=== PATIENT | male | born 1975 | race African-American/Black ===

== ENCOUNTER → 2017-08-29 | Outpatient (CLI) | payer OTHER ==
[~2017-08-29] MED LIST: CLTP PO; LISI-788 PO; MULT-506 PO; OMEG10007 PO
--- NOTE | 2017-08-31 07:34 | Sleep Study ---
Sleep Study Report Date of Service: 08/29/2017 Sleep Study Report CLINICAL DATA: The patient is a 42-year-old male with a BMI of 27.53, referred by Dianna Samano PA-C for evaluation of sleep apnea. The patient has snoring and disturbed nocturnal sleep. There is a family history of obstructive sleep apnea. His [place] score is 7. On the evening of 08/29/2017, a home sleep apnea test was performed using a [employer] type 3 monitor. RECORDING RESULTS: Total recording time was 9.9 hours. Patient estimated sleep time was 6.5 hours. RESPIRATORY DATA: No significant sleep apnea was documented. The ROSARIO was 1.7 events per hour. There was 1 obstructive apnea and 10 hypopneas. The longest respiratory event was 30 seconds. OXIMETRY DATA: The mean saturation for the night was 94 percent. The minimum saturation was 88 percent. The estimated sleep time below 89 percent was 0 minutes. HEART RATE DATA: The cardiac rates 58-81 beats per minute. SNORING DATA: Snoring was present throughout the test. IMPRESSIONS: 1. NO EVIDENCE OF OBSTRUCTIVE SLEEP APNEA. Copies To 1: Gume Dickerson M.D.; Lloyd Schneider DO; Dianna Samano PA-C
== END | disposition home or self-care (01) ==
LOC: C.NEUR 08:23
PROVIDERS: ATTEND Physician Assistant
DX: G47.00 Insomnia, unspecified (principal); R53.83 Other fatigue; R51 Headache; R06.83 Snoring

== ENCOUNTER → 2017-11-10 | Outpatient (CLI) | payer OTHER ==
--- NOTE | 2017-11-10 14:41 | DIAGNOSTIC IMAGING REPORT ---
R EXTREMITY NONVASCULAR LIMITED CLINICAL HISTORY: RT SIDED INNER THIGH PAIN,SWELLING,R/O ABSCESS TECHNIQUE: Ultrasound COMPARISON STUDY: None FINDINGS: Soft tissue thickening at the point of clinical tenderness/nodularity. This surrounds a small fluid pocket measuring 1 cm x 5 mm. IMPRESSION: 1. Small fluid pocket measuring 1 cm x 0.5 cm. 2. This is surrounded by soft tissue thickening/fibrous tissue The above report was generated using voice recognition software. It may contain grammatical, syntax or spelling errors. Electronically signed by: John Zambrano M.D. 11/10/2017 2:39 PM Dictated Date/Time: 11/10/2017 2:36 PM
== END | disposition home or self-care (01) ==
LOC: C.ULTR 14:06
PROVIDERS: ATTEND Nurse Practitioner Family
DX: R22.9 Localized swelling, mass and lump, unspecified (principal)

== ENCOUNTER 2017-11-28 16:55 | Emergency (ER) | payer OTHER ==
[~2017-11-28] VITALS: Ht 182.9 cm; Wt 91.7 kg
[2017-11-28 16:59] VITALS: TEMP 36.7; Ht 182.9 cm; Wt 91.7 kg
[2017-11-28] MEDS ORDERED: ONDANSETRON INJ 2 MG/ML 2 ML VIAL IV STA (17:31)
[2017-11-28] MEDS ORDERED: SODIUM CHLORIDE 0.9% 1000ML 1,000 ML IV STA (17:31)
[2017-11-28 18:00] LABS: BASO % 0.6 %; BASO ABS # 0.04 K/uL (0-0.2); EOS % 0.9 %; EOS ABS # 0.06 K/uL (0-0.5); HEMATOCRIT 41.1 % (42-52); HEMOGLOBIN 15.4 g/dL (14.0-18.0); IG# 0.01 K/uL (0.00-0.02); LYMPH % 23.8 %; LYMPH ABS # 1.54 K/uL (1.2-3.4); MEAN CELL VOLUME 79.5 fL (80-100); MEAN CORPUSCULAR HEMOGLOBIN 29.8 pg (25-34); MEAN CORPUSCULAR HGB CONC 37.5 g/dl (32-36); MEAN PLATELET VOLUME 9.2 fL (7.4-10.4); MONO % 10.6 %; MONO ABS # 0.69 K/uL (0.11-0.59); NEUT % 63.9 %; NEUT ABS # 4.14 K/uL (1.4-6.5); PLATELET COUNT 180 K/uL (130-400); RED CELL DISTRIBUTION WIDTH SD 34.9 fL (36.4-46.3); WHITE BLOOD COUNT 6.48 K/uL (4.8-10.8)
[2017-11-28] MEDS ORDERED: CALC-354 PO (18:03)
[2017-11-28 18:24] LABS: ALBUMIN 3.7 gm/dl (3.4-5.0); CALCIUM 8.8 mg/dl (8.5-10.1); CREATININE 0.94 mg/dl (0.60-1.40); POTASSIUM 3.3 mmol/L (3.5-5.1)
[2017-11-28 18:27] LABS: TOTAL PROTEIN 7.8 gm/dl (6.4-8.2)
--- NOTE | 2017-11-28 18:35 | DIAGNOSTIC IMAGING REPORT ---
ABD/PELVIS NO IV OR ORAL CONT CLINICAL HISTORY: 42 years-old Male presenting with LLQ pain, vomiting and diarrhea, dehydration. TECHNIQUE: Multidetector CT of the abdomen and pelvis was performed without the use of intravenous contrast. IV contrast: None. A dose lowering technique was used consistent with the principles of ALARA (as low as reasonably achievable). COMPARISON: None. CT DOSE (mGy.cm): The estimated cumulative dose is 461.86 mGy.cm. 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 Lung bases: Lungs and pleural spaces clear. Normal heart size. No pericardial or pleural effusion. Liver: Normal morphology. Density consistent with hepatic steatosis. Subcentimeter hypodensity at the hepatic dome likely indicates hepatic cyst or hamartoma though indeterminate. Biliary: No gross biliary ductal dilatation allowing for noncontrast technique. Normal gallbladder. Pancreas: Normal noncontrast appearance. Spleen: Normal noncontrast appearance. Adrenal glands: Normal noncontrast appearance. Kidneys and ureters: Normal noncontrast appearance. No nephrolithiasis. No hydronephrosis. Normal ureters. Bladder: Circumferential bladder wall thickening. Pelvic organs: Mild prostatic enlargement likely secondary to benign prostatic hyperplasia. Bowel: Scattered hyperdensities throughout the bowel, likely medication menstruation. The appendix is normal. No bowel obstruction. No gross evidence of wall thickening or pericolonic or perienteric inflammatory change. Peritoneal cavity: No free fluid or intraperitoneal gas. Lymph nodes: No gross lymphadenopathy allowing for noncontrast technique. Vasculature: Normal noncontrast appearance. Abdominal wall: Normal. Musculoskeletal: Normal. IMPRESSION: 1. Hepatic steatosis. Correlate with liver function tests to exclude steatohepatitis as a cause for abdominal pain. 2. No other evidence of acute intra-abdominal pathology. 3. Borderline prostatic enlargement and possible chronic bladder outlet obstruction. Electronically signed by: Moreno Alvarez M.D. 11/28/2017 6:34 PM Dictated Date/Time: 11/28/2017 6:29 PM
[2017-11-28] MEDS ORDERED: POTASSIUM CHLORIDE 10 MEQ TABCR PO STA (18:59)
[2017-11-28] MEDS ORDERED: ONDA4TAB10 SL (19:15)
--- NOTE | 2017-11-28 19:18 | EMERGENCY ROOM VISIT NOTE ---
History Report prepared by Ana: Kelley Johansen Under the Supervision of: Dr. Gume Gao D.O. First contact with patient: 17:26 Chief Complaint: GI ASSESSMENT Stated Complaint: SENT BY DOCTOR, DEYHYDRATION, DIVERTICULOSIS History of Present Illness The patient is a 42 year old male who presents to the Emergency Room with complaints of persistent LLQ abdominal pain starting 4 days ago. The patient started having a sour stomach and decreased appetite 4 days ago. The patient then had nausea, vomiting, and watery diarrhea over the weekend. These symptoms have improved, but worsen whenever he tries to eat. He thinks he might have had a fever 3 days ago, but none recently. He has tried taking ibuprofen and Pepto to no significant relief. His last episode of vomiting and diarrhea was 2 days ago. He is feeling dehydrated and weak. He saw a doctor today who thought that he was dehydrated and needs fluids. They recommended he get imaging to check for diverticulosis. He denies any history of diverticulitis. He has a history of hypertension. He has not had a colonoscopy before. He has not had any abdominal surgeries. Source of History: patient Onset: 4 days ago Position: abdomen (LLQ) Timing: other (persistent) Modifying Factors (Worsening): eating Associated Symptoms: + nausea, + vomiting, + diarrhea Review of Systems See HPI for pertinent positives & negatives. A total of 10 systems reviewed and were otherwise negative. Past Medical & Surgical Medical Problems: (1) Hypertension Family History Atrial fibrillation [place] (myocardial infarction) Social History Smoking Status: Never Smoker Occupation Status: employed Current/Historical Medications Scheduled Calcium Carbonate-Cholecalcife (Caltrate 600+D), 1 TAB PO DAILY Fish Oil (Hawkeye-3), 1 CAP PO DAILY Lisinopril/Hctz (Zestoretic 20MG/25MG), 1 TAB PO DAILY Multivitamin (Multivitamin), 1 TAB PO DAILY Ondasetron Odt (Zofran Odt), 4 MG SL Q6H Allergies Coded Allergies: No Known Allergies (Unverified , 05/14/16) Physical Exam Vital Signs Date Time Temp Pulse Resp B/P (MAP) Pulse Ox O2 Delivery O2 Flow Rate FiO2 11/28/17 19:52 80 18 144/79 99 11/28/17 19:18 80 18 144/79 99 Room Air 11/28/17 16:59 36.7 102 20 131/83 100 Room Air Physical Exam GENERAL: Patient is awake, alert, and in no acute distress. Patient is resting comfortably and showing no signs of anxiety EYES: The conjunctivae are clear. The pupils are round and reactive. EARS, NOSE, MOUTH AND THROAT: The nose is without any evidence of any deformity. Mucous membranes are moist tongue is midline NECK: The neck is nontender and supple. RESPIRATORY: Normal respiratory effort is noted there is no evidence of wheezing rhonchi or rales CARDIOVASCULAR: Regular rate and rhythm noted there no murmurs rubs or gallops normal S1 normal S2 GASTROINTESTINAL: The abdomen is soft. Bowel sounds are present in all quadrants. Abdomen is nontender BACK: No midline tenderness or or step-off noted range of motion in flexion extension as well as rotation no signs of muscle spasm noted MUSCULOSKELETAL/EXTREMITIES: There is no evidence of gross deformity full range of motion is noted in the hips and shoulders SKIN: There is no obvious evidence of any rash. There are no petechiae, pallor or cyanosis noted. NEUROLOGIC: Patient is awake alert and oriented x3 strength is symmetric patellar reflexes are 2+ bilaterally Medical Decision & Procedures ER Provider Diagnostic Interpretation: Radiology results as stated below per my review and radiologist interpretation: ABD/PELVIS NO IV OR ORAL CONT CLINICAL HISTORY: 42 years-old Male presenting with LLQ pain, vomiting and diarrhea, dehydration. TECHNIQUE: Multidetector CT of the abdomen and pelvis was performed without the use of intravenous contrast. IV contrast: None. A dose lowering technique was used consistent with the principles of ALARA (as low as reasonably achievable). COMPARISON: None. CT DOSE (mGy.cm): The estimated cumulative dose is 461.86 mGy.cm. FINDINGS: Pet Caretaker topogram: Unremarkable. Lung bases: Lungs and pleural spaces clear. Normal heart size. No pericardial or pleural effusion. Liver: Normal morphology. Density consistent with hepatic steatosis. Subcentimeter hypodensity at the hepatic dome likely indicates hepatic cyst or hamartoma though indeterminate. Biliary: No gross biliary ductal dilatation allowing for noncontrast technique. Normal gallbladder. Pancreas: Normal noncontrast appearance. Spleen: Normal noncontrast appearance. Adrenal glands: Normal noncontrast appearance. Kidneys and ureters: Normal noncontrast appearance. No nephrolithiasis. No hydronephrosis. Normal ureters. Bladder: Circumferential bladder wall thickening. Pelvic organs: Mild prostatic enlargement likely secondary to benign prostatic hyperplasia. Bowel: Scattered hyperdensities throughout the bowel, likely medication menstruation. The appendix is normal. No bowel obstruction. No gross evidence of wall thickening or pericolonic or perienteric inflammatory change. Peritoneal cavity: No free fluid or intraperitoneal gas. Lymph nodes: No gross lymphadenopathy allowing for noncontrast technique. Vasculature: Normal noncontrast appearance. Abdominal wall: Normal. Musculoskeletal: Normal. IMPRESSION: 1. Hepatic steatosis. Correlate with liver function tests to exclude steatohepatitis as a cause for abdominal pain. 2. No other evidence of acute intra-abdominal pathology. 3. Borderline prostatic enlargement and possible chronic bladder outlet obstruction. Electronically signed by: Moreno Alvarez M.D. 11/28/2017 6:34 PM Dictated Date/Time: 11/28/2017 6:29 PM Laboratory Results 11/28/17 17:40 Red Blood Count 5.17, Mean Corpuscular Volume 79.5, Mean Corpuscular Hemoglobin 29.8, Mean Corpuscular Hemoglobin Concent 37.5, Mean Platelet Volume 9.2, Neutrophils (%) (Auto) 63.9, Lymphocytes (%) (Auto) 23.8, Monocytes (%) (Auto) 10.6, Eosinophils (%) (Auto) 0.9, Basophils (%) (Auto) 0.6, Neutrophils # (Auto ) 4.14, Lymphocytes # (Auto) 1.54, Monocytes # (Auto) 0.69, Eosinophils # (Auto ) 0.06, Basophils # (Auto) 0.04 11/28/17 17:40 Test 11/28/17 17:40 11/28/17 17:47 White Blood Count 6.48 K/uL (4.8-10.8) Red Blood Count 5.17 M/uL (4.7-6.1) Hemoglobin 15.4 g/dL (14.0-18.0) Hematocrit 41.1 % (42-52) Mean Corpuscular Volume 79.5 fL (80-100) Mean Corpuscular Hemoglobin 29.8 pg (25-34) Mean Corpuscular Hemoglobin Concent 37.5 g/dl (32-36) Platelet Count 180 K/uL (130-400) Mean Platelet Volume 9.2 fL (7.4-10.4) Neutrophils (%) (Auto) 63.9 % Lymphocytes (%) (Auto) 23.8 % Monocytes (%) (Auto) 10.6 % Eosinophils (%) (Auto) 0.9 % Basophils (%) (Auto) 0.6 % Neutrophils # (Auto) 4.14 K/uL (1.4-6.5) Lymphocytes # (Auto) 1.54 K/uL (1.2-3.4) Monocytes # (Auto) 0.69 K/uL (0.11-0.59) Eosinophils # (Auto) 0.06 K/uL (0-0.5) Basophils # (Auto) 0.04 K/uL (0-0.2) RDW Standard Deviation 34.9 fL (36.4-46.3) RDW Coefficient of Variation 12.0 % (11.5-14.5) Immature Granulocyte % (Auto) 0.2 % Immature Granulocyte # (Auto) 0.01 K/uL (0.00-0.02) Anion Gap 8.0 mmol/L (3-11) Est Creatinine Clear Calc Drug Dose 114.7 ml/min Estimated GFR () 117.1 Estimated GFR (Non- 101.0 BUN/Creatinine Ratio 14.4 (10-20) Calcium Level 8.8 mg/dl (8.5-10.1) Total Bilirubin 1.2 mg/dl (0.2-1) Direct Bilirubin 0.2 mg/dl (0-0.2) Aspartate Amino Transf (AST/SGOT) 29 U/L (15-37) Alanine Aminotransferase (ALT/SGPT) 52 U/L (12-78) Alkaline Phosphatase 60 U/L (45-117) Troponin I < 0.015 ng/ml (0-0.045) Total Protein 7.8 gm/dl (6.4-8.2) Albumin 3.7 gm/dl (3.4-5.0) Lipase 187 U/L (73-393) Urine Color YELLOW Urine Appearance CLEAR (CLEAR) Urine pH 6.0 (4.5-7.5) Urine Specific [place] 1.014 (1.000-1.030) Urine Protein NEG (NEG) Urine Glucose (UA) NEG (NEG) Urine Ketones NEG (NEG) Urine Occult Blood NEG (NEG) Urine Nitrite NEG (NEG) Urine Bilirubin NEG (NEG) Urine Urobilinogen NEG (NEG) Urine Leukocyte Esterase NEG (NEG) Laboratory results per my review. Medications Administered Medications (Trade) Dose Ordered Sig/Tre Route Start Time Stop Time Status Last Admin Dose Admin Ondansetron HCl (Zofran Inj) 4 mg NOW STAT IV 11/28/17 17:31 11/28/17 17:33 DC 11/28/17 17:46 4 MG Sodium Chloride 1,000 ml @ 999 mls/hr Q1H1M STAT IV 11/28/17 17:31 11/28/17 18:31 DC 11/28/17 17:31 999 MLS/HR Potassium Chloride (Klor-Con M10) 10 meq NOW STAT PO 11/28/17 18:59 11/28/17 19:00 DC 11/28/17 19:18 10 MEQ ECG Per My Interpretation Indication: weakness Rate (beats per minute): 85 Rhythm: normal sinus Findings: no ectopy, other (no acute ST segment abnormality) ED Course 1729: The patient was evaluated in room B9. A complete history and physical examination were performed. 173: NSS 1,000 ml @ 999 mls/hr IV, Zofran Inj 4 mg IV. 1859: Potassium Chloride 10 meq PO. 190: Upon reevaluation, the patient is resting comfortably. I discussed the results and treatment plan with him. He verbalized agreement of the treatment plan. He was discharged home. Medical Decision Prior records/ancillary studies reviewed. Triage Nursing notes reviewed. The patient's history was concerning for abdominal pain. Differential diagnosis: Etiologies such as appendicitis, diverticulitis, PUD, biliary pathology, UTI, pancreatitis, obstruction, mesenteric ischemia, aortic pathology, infections, inflammatory bowel disease, renal colic, as well as others were entertained. The patient is a 42-year-old male who presented to the emergency department at the request of his primary care physician. The patient's been having nausea vomiting and diarrhea as well as left lower quadrant abdominal pain for 4 days. The patient's nausea vomiting diarrhea seems to have improved over the last 24 hours but when he was seen by his primary care physician he was sent to the emergency department for concerns of dehydration and for a CT the abdomen and pelvis for possible diverticulitis. The patient's exam was fairly benign on my exam. The patient was treated with IV fluids as well as oral potassium in the emergency department. He also received IV Zofran. On subsequent reevaluation he was feeling much better. I discussed patient's laboratory and radiographic studies with him including his low sodium. It could be a function of his medications or possibly sequelae of his nausea vomiting and diarrhea. The patient was encouraged to drink plenty clear liquids and continue all medications as prescribed. He was also encouraged to follow-up with his doctor for reevaluation as well as for repeat laboratory studies. I also encouraged him to return to the emergency department immediately symptoms change worsen or the need arises. Medication Reconcilliation Current Medication List: was personally reviewed by me Blood Pressure Screening Patient's blood pressure: Elevated blood pressure Blood pressure disposition: Elevated BP felt to be situational Impression Primary Impression: Nausea vomiting and diarrhea Additional Impressions: Left lower quadrant abdominal pain of unknown etiology Hyponatremia Hypokalemia Scribe Attestation The scribe's documentation has been prepared under my direction and personally reviewed by me in its entirety. I confirm that the note above accurately reflects all work, treatment, procedures, and medical decision making performed by me. Departure Information Dispostion Home / Self-Care Prescriptions Ondasetron Odt (ZOFRAN ODT) 4 Mg Tab 4 MG SL Q6H for Nausea, #15 TAB Prov: Gume Gao, 11/28/17 Referrals Gume Dickerson M.D. (PCP) Forms HOME CARE DOCUMENTATION FORM, IMPORTANT VISIT INFORMATION Patient Instructions [facility] Additional Instructions Continue all medications as prescribed. Drink plenty clear liquids. Call your family doctor to schedule a follow-up appointment. You will need to have your sodium rechecked again because it was low in the emergency department today. Return to the emergency department immediately if symptoms change worsen or the need arises. Problem Qualifiers
[2017-11-28 19:52] VITALS: BP 144/79; PULSE 80; O2SAT 99
== END 2017-11-28 19:53 | disposition home or self-care (01) ==
LOC: C.EDB 16:56
DX: R11.2 Nausea with vomiting, unspecified (principal); R19.7 Diarrhea, unspecified; R10.32 Left lower quadrant pain; E87.1 Hypo-osmolality and hyponatremia; E87.6 Hypokalemia; I10 Essential (primary) hypertension